=== PATIENT | female | born 1960 ===

== ENCOUNTER 2020-10-08 12:07 | Emergency (ER) | payer OTHER ==
[2020-10-08 12:42] VITALS: BP 114/74; PULSE 59; TEMP 97.7; BMI 36.1
== END 2020-10-08 12:45 | disposition home or self-care (01) ==
LOC: SUPCPDRO 12:07 → FER 12:07
DX: T83.098A Other mechanical complication of other urinary catheter, initial encounter (principal)
CPT/HCPCS: 99282-25